=== PATIENT | female | born 1985 | race African-American/Black ===

== ENCOUNTER 2022-11-25 06:03 | Emergency (ER) | payer SELFPAY ==
[2022-11-25] MEDS ORDERED: Amoxicillin/Clavulanate K 875-125 MG Tab PO ONE (06:17)
== END 2022-11-25 06:43 | disposition home or self-care (01) ==
LOC: MW.ED 06:03
DX: K04.7 Periapical abscess without sinus (principal)
CPT/HCPCS: 99282; A9270

== ENCOUNTER 2023-04-18 09:40 | Emergency (ER) | payer MEDICARE, MEDICAID ==
[2023-04-18 10:52] LABS: CORONAVIRUS COVID-19 NAA NEGATIVE (NEGATIVE); INFLUENZA A NAA NEGATIVE (NEGATIVE); INFLUENZA B NAA NEGATIVE (NEGATIVE); RESPIRATORY SYNCYTIAL VIR NAA NEGATIVE (NEGATIVE)
== END 2023-04-18 11:12 | disposition home or self-care (01) ==
LOC: MW.ED 09:40
DX: R19.7 Diarrhea, unspecified (principal); F17.200 Nicotine dependence, unspecified, uncomplicated
CPT/HCPCS: 0241U; 99284

== ENCOUNTER 2024-03-01 06:14 | Emergency (ER) | payer SELFPAY ==
[2024-03-01 06:38] LABS: HEMATOCRIT 34.1 % (37.0-47.0); HEMOGLOBIN 11.2 g/dL (12.0-16.0); MEAN CORPUSCULAR HEMOGLOBIN 29.1 pg (28.0-32.0); MEAN CORPUSCULAR HGB CONC 32.8 g/dL (32.0-36.0); MEAN CORPUSCULAR VOLUME 88.6 fL (83.0-99.0); PLATELET COUNT,PLT 202 K/uL (150-400); RED BLOOD CELL COUNT 3.85 M/uL (4.10-5.30); WHITE BLOOD CELL COUNT,WBC 9.68 K/uL (3.9-11.3)
[2024-03-01] MEDS: Ondansetron 4 MG/2 ML SDV IVPUSH ONE (07:03)
[2024-03-01 07:05] LABS: A/G RATIO 0.9 (0.9-1.6); ALANINE AMINOTRANSFERASE,ALT 24 IU/L (14-63); ALBUMIN 3.6 g/dL (3.4-5.0); ALKALINE PHOSPHATASE 50 U/L (46-116); ASPARTATE AMNIOTRANSFERASE,AST 17 IU/L (15-37); BILIRUBIN TOTAL 0.5 mg/dL (0.2-1.0); BLOOD UREA NITROGEN,BUN 7 mg/dL (7.0-18.0); CALCIUM 9.3 mg/dL (8.5-10.1); CARBON DIOXIDE,CO2 26.5 mmol/L (21.0-32.0); CHLORIDE,CL 102 mmol/L (98-107); CREATININE 0.7 mg/dL (0.6-1.0); EST CRCL DRUG DOSING (CG) 91.02 mL/min; GLUCOSE RANDOM 151 mg/dL (74-106); POTASSIUM,K 3.9 mmol/L (3.5-5.1); PROTEIN TOTAL,TP 7.5 g/dL (6.4-8.2); SODIUM,NA 136 mmol/L (136-145)
[2024-03-01] MEDS: Famotidine 20 MG Tab PO STA ×2 (07:08→07:14)
[2024-03-01] MEDS: Famotidine 40 MG/5 ML Bottle PO ONE (07:08)
[2024-03-01 07:11] LABS: ESTIMATED GFR 114 mL/min (>60)
[2024-03-01] MEDS: Aluminum Hydroxide/Magnesium Hydroxide/Simethicone Susp 30 ML Cup PO ONE (07:13)
[2024-03-01] MEDS: Ondansetron 4 MG Tab.DIS PO ONE (07:13)
[2024-03-01 07:47] LABS: LYMPHOCYTES ABSOLUTE MAN 0.39 K/uL (1.00-4.80); LYMPHOCYTES PERCENT MAN 4 % (24-44); MONOCYTES PERCENT MAN 1 % (0-8); SEG NEUTROPHILS PERCENT MAN 95 % (41-71)
== END 2024-03-01 08:01 | disposition home or self-care (01) ==
LOC: MW.ED 06:14
DX: K21.9 Gastro-esophageal reflux disease without esophagitis (principal)
CPT/HCPCS: 36415; 71045; 80053; 84484; 85025; 93005; A9270; 93010; 99283; 99285